=== PATIENT | female | born 1980 | race Hispanic/Latino ===

== ENCOUNTER 2022-01-26 10:43 | Emergency (ER) | payer BC ==
[~2022-01-26] VITALS: Ht 160 cm; Wt 62.6 kg
== END 2022-01-26 12:08 | disposition home or self-care (01) ==
LOC: FSED 11:09
DX: S00.83XA Contusion of other part of head, initial encounter (principal); M25.512 Pain in left shoulder; W21.09XA Struck by other hit or thrown ball, initial encounter; Y93.11 Activity, swimming; Y92.095 Swimming-pool of other non-institutional residence as the place of occurrence of the external cause
CPT/HCPCS: 99282

== ENCOUNTER 2022-12-07 06:59 | Emergency (ER) | payer BC ==
[~2022-12-07] VITALS: Ht 160 cm; Wt 68.2 kg
[2022-12-07] MEDS ORDERED: KETOROLAC TROMETHAMINE 30 MG/ML VIAL IV STA (08:13)
== END 2022-12-07 09:38 | disposition home or self-care (01) ==
LOC: FSED 07:11
DX: R07.9 Chest pain, unspecified (principal); R06.02 Shortness of breath; M54.9 Dorsalgia, unspecified; F41.9 Anxiety disorder, unspecified
CPT/HCPCS: 71046; 80048; 80076; 81003; 81025; 82553; 84484; 85025; 85379; 93005; 96374; 99284; J1885